=== PATIENT | male | born 1950 | race Caucasian/White ===

== ENCOUNTER 2019-03-12 10:02 | Emergency (ER) | payer OTHER, BC ==
[~2019-03-12] VITALS: Ht 182.9 cm; Wt 117.5 kg
[2019-03-12] MEDS ORDERED: Robaxin750 MG PO (10:26)
[2019-03-12] MEDS ORDERED: GABAPENTIN CAP 300 (10:27)
[2019-03-12] MEDS ORDERED: TRIAMT/HCTZ TAB 37. (10:27)
[2019-03-12] MEDS ORDERED: Hydrocodone-Ap1 EA23 PO (10:27)
[2019-03-12] MEDS ORDERED: ATORVASTATIN CA40 MG PO (10:28)
[2019-03-12] MEDS ORDERED: MOTION RELIEF25 MG PO (12:30)
== END 2019-03-12 12:34 | disposition home or self-care (01) ==
LOC: ER 10:02
DX: R42 Dizziness and giddiness (principal); R51 Headache; E78.5 Hyperlipidemia, unspecified; F17.210 Nicotine dependence, cigarettes, uncomplicated; Z79.891 Long term (current) use of opiate analgesic; Z79.899 Other long term (current) drug therapy
CPT/HCPCS: 36415; 70450; 96374; 99284-25; J1885